=== PATIENT | female | born 1985 | race Caucasian/White ===

== ENCOUNTER 2018-02-09 16:33 | Emergency (ER) | payer OTHER, SELFPAY ==
[2018-02-09 16:35] VITALS: BP 110/75; PULSE 71; RESP 16; TEMP 36.7; O2SAT 100; BMI 20.4
--- NOTE | 2018-02-09 16:45 | CT_ITS ---
STUDY: CT ABDOMEN AND PELVIS WITHOUT CONTRAST REASON FOR EXAM: Female, 33 years old. Left flank pain into groin RADIATION DOSAGE (If Supplied By Facility): CTDIvol = ( 5.06 ) mGy, DLP = ( 199.98 ) mGycm TECHNIQUE: Transaxial images were obtained from the dome of the diaphragm to the symphysis pubis without oral contrast, and without intravenous contrast. Sagittal and coronal images were reconstructed. Individualized dose optimization techniques were used for this CT. COMPARISON: None. FINDINGS: The visualized lung bases are unremarkable. The visualized portions of the heart are within normal limits. Normal liver. Normal gallbladder and extrahepatic biliary system. Normal spleen. Normal pancreas. Normal bilateral adrenal glands. There appears to be mild bilateral pelviectasis without discrete hydronephrosis. There appears to be mild bilateral hydroureter without stones. Normal visualized stomach. Multiple loops of small bowel demonstrating scattered air-fluid levels with fluid filled appearance. No evidence of small bowel obstruction however. Normal colon. There is non-visualization of the appendix. Surgical clip noted near the rectum. There is a right tubal ligation clip. Unsure if this is a fallen tubal ligation clip. There is simple appearing abdominal ascites fluid of unknown origin. Normal abdominal aorta. Normal inferior vena cava. Normal retroperitoneum. Normal urinary bladder. Normal visualized uterus. Normal abdominal wall. Normal osseous structures. CT/Abdomen/Pelvis without Cont IMPRESSION: 1. Abdominal ascites fluid, simple in appearance. Of unknown origin. 2. Scattered mildly gaseous distended loops of small bowel with fluid-filled appearance. No evidence of abnormal obstruction. Nonspecific finding 3. Tubal ligation clips are noted however, the left tubal ligation clip is noted posterior to the rectal region. Unsure if this has become loosened from original location. 4. There appears to mild bilateral dilated renal pelvis with mild bilateral hydroureter. No discrete stones. Prominent distention of the bladder. Unsure if this represents urinary retention Electronically Signed: Coy Atkinson DO at 18:12 EDT Tel , Service support ,
[2018-02-09] MEDS: Ketorolac 30 MG/ML Syringe IV (17:00)
[2018-02-09] MEDS: 0.9% Normal Saline 1,000 ML 125 ML IV (17:00)
[2018-02-09] MEDS: Morphine 4 MG/ML Syringe IV (17:01)
[2018-02-09] MEDS: Ondansetron 4 MG/2 ML Vial IV (17:01)
[2018-02-09 17:24] LABS: Absolute Lymphocyte Count 2.45 X10^3/ul (0.83-4.51); Absolute Neutrophil Count 6.2 X10^3/uL (2.0-7.7); Basophil# 0.03 X10^3/uL; Basophil% 0.3 % (0-1); Eosinophil# 0.17 X10^3/uL; Eosinophils% 1.7 % (0-5); Hematocrit 38.6 % (37-47); Hemoglobin 13.6 g/dl (12.0-15.0); Lymphocyte # 2.45 X10^3/ul (4.0); Mean Corp Hgb Conc 35.2 g/gl (32-36); Mean Corpuscular Hgb 32.5 pg (27.0-32.0); Mean Corpuscular Volume 92.3 fL (81-99); Mean Platelet Vol. 11.1 fl (6.2-12.0); Monocyte# 0.92 X10^3/uL; Monocyte% 9.4 % (0-10); Neutrophil # 6.21 X10^3/uL (2.7-7.7); Neutrophil % 63.4 % (47-70); Platelet Count 188 K/mm3 (150-450); RBC Distribution Width CV 12.8 % (11.6-14.6); RBC Distribution Width SD 42.1 fl (35.1-43.9); Red Blood Count 4.18 M/mm3 (4.2-5.4); White Blood Count 9.8 K/mm3 (4.4-11.0)
[2018-02-09 17:28] LABS: POSITIVE COUNT NO; POSITIVE DIFFERENTIAL NO; POSITIVE MORPHOLOGY NO
[2018-02-09 17:29] LABS: Anion Gap 7 (5-15); BUN 11 mg/dL (7-18); BUN/Creat Ratio 18.8 RATIO (10-20); Chloride 106 mmol/L (98-107); Creatinine, Serum 0.58 mg/dL (0.55-1.02); EST Glomerular Filtration Rate 127 mL/min (>60); Est Glom Filt Rate - Afr Amer 153 mL/min (>60); Estimated Creatinine Clearance 105.08 ml/min; Glucose 83 mg/dL (74-106); Potassium 3.5 mmol/L (3.5-5.1); Sodium Level 137 mmol/L (136-145)
[2018-02-09 17:37] LABS: Pregnancy, Serum, hCG Quali. NEGATIVE Negative (0-9 Nonpreg)
[2018-02-09 18:14] LABS: Bacteria 0 SEEN /hpf (None Seen); Mucous, Urine 0 SEEN /hpf (<or=2+); Red Blood Cells-Urine 0 SEEN /hpf (0-5); White Blood Cells 0 SEEN /hpf (0-5)
--- NOTE | 2018-02-09 18:28 | US_ITS ---
STUDY: ULTRASOUND OF THE FEMALE PELVIS - COMPLETE REASON FOR EXAM: Female, 33 years old. Left lower quadrant pain LMP: 01/24/2018 TECHNIQUE: Transvaginal TECHNICAL QUALITY: Adequate. COMPARISON: None. FINDINGS: The uterus is anteverted and is in a midline position. The uterus measures 7.4 x 5.8 x 3.4 cm. Normal uterine cervix. The endometrium measures 9 mm in thickness, and is . There is no demonstrated endometrial mass. There is no demonstrated myometrial mass. I.U.D. - The patient does not have an I.U.D. The right ovary is visualized. The right ovary measures 2.4 x 2.1 x 1.9 cm. There is no right ovarian cyst or ovarian mass. There is no visualized right adnexal mass or complex lesion. There is normal arterial and normal venous vascularity. The left ovary is visualized. The left ovary measures 4.2 x 3.2 x 2.1 cm. There is no left ovarian cyst or ovarian mass. There is no visualized left adnexal mass or complex lesion. There is normal arterial and normal venous vascularity. There is no fluid in the cul-de-sac. Polycystic ovary disease: No. US/Transvaginal Non- IMPRESSION: Normal female pelvis. Electronically Signed: Coy Atkinson DO at 19:55 EDT Tel , Service support ,
[2018-02-09 19:40] LABS: Color, Urine Straw (Yellow); Glucose, Dipstick Normal (Normal); Ketone-Dipstick 5 mg/dl (Negative); Leukocyte Esterase-Dipstick Negative /ul (Negative); Nitrite-Dipstick Negative (Negative); Occult Blood-Urine Negative /ul (Negative); Protein-Dipstick Negative (Negative); Urine Bilirubin Dipstick Negative (Negative); Urine Clarity Clear (Clear); Urine Urobilinogen Normal (Normal)
[2018-02-09 20:15] LABS: Squamous Epithelial Cells - UA 5-10 SEEN /hpf (5-10)
--- NOTE | 2018-02-09 20:18 | ED.RN ---
PT UP TO THE BATHROOM TO VOID. BLADDER SCANNED PATIENT AND POST RESIDUAL NOTED AT 80 CC. (HAD PUT A HAT IN THE TOILET TO MEASURE URINE) BUT ANOTHER PATIENT HAD DUMPED IT. PATIENT REPORTS SHE VOIDED A SMALL AMOUNT. REPORTS LEFT LOWER PAIN IS 2/10
--- NOTE | 2018-02-09 20:24 | ED.DCSUM_ITS ---
- ER Visit Summary Date of Service: 02/09/18 Chief Complaint: [Left flank pain] History of Present Illness: The patient is a 33 F [presents to the emergency department with complaint of left-sided flank pain that started around 305 today. Patient states that she had gotten up after urinating he felt sudden onset of severe excruciating pain to the left lower quadrant and back. Patient was seen at urgent care and had her urine dipped which was negative and sent to the ER for further workup and evaluation. Patient rates her pain a 10 out of 10 currently. Patient has not had pain like this before. Patient denies any fever or recent illness otherwise. She denies urinary symptoms of dysuria or urgency although she has had some slight frequency.] Physical Examination: [HEENT-PERRLA, EOMI. Cranial nerves II through XII grossly intact. TMs clear. Mucous membranes moist. No adenopathy. Cardiovascular-regular rate and rhythm without murmur or ectopy Lungs-clear to auscultation, chest wall stable without crepitus or subcu emphysema Abdomen-normoactive bowel sounds, soft. Patient has tenderness over left lower quadrant with some guarding. Patient has CVA tenderness on the left. There is no rebound, rigidity, or peritoneal signs. Extremities-intact ?4, normal range of motion, normal pulses, atraumatic] Test Results: [CBC with differential obtained was normal. Chemistries were normal. Urinalysis was normal. HCG was negative. CT scan of the abdomen and pelvis without contrast obtained showed abdominal ascites fluid simple in appearance of unknown origin patient also had scattered mildly distended loops of small bowel with fluid-filled appearance no evidence of abnormal obstruction. Patient had tubal ligation clips left tubal ligation clip is noted posterior to the rectal region and unsure if this is become loosened from original location. There appears to be mild bilateral dilated renal pelvis with mild bilateral hydroureter no discrete stones noted prominent distention of the bladder and right etiology was questioning if this represented urinary retention. Patient also had a pelvic ultrasound that showed normal blood flow to both ovaries and essentially normal ultrasound. I did have the patient void and checked a post void bladder scan which only showed 80 cc of urine. ] Emergency Department Course and Treatment: [Patient initially was medicated with Toradol, morphine, and Zofran and had good pain relief with that. Patient continues to be pain-free at this point.] Treatment Plan: [Patient will be discharged home with a prescription for [place] for severe pain. This point it is unclear the etiology of her pain and it is possible she may have passed a small kidney stone.] Disposition: [Discharged home in stable condition] Impression: [Left flank pain-etiology uncertain-resolved] This note was generated with [email or web address] dictation software. It may contain incorrect words, spelling, and punctuation that were not noted in review of the chart prior to signing ED Disposition - Plan for ED Patient: Chief Complaint: Flank Pain Referrals: Zack Rodriguez MD [Primary Care Provider] -
--- NOTE | 2018-02-09 20:25 | DCINST.ED_ITS ---
ED Disposition - Plan for ED Patient: Chief Complaint: Flank Pain Instructions: ED Flank Pain Uncertain Cause Prescriptions: Hydrocodone Bitart/Apap 5-325 [[place] 5MG-325MG] 1 tab PO Q4H PRN PRN 2 Days #10 tab PRN Reason: Pain Referrals: Zack Rodriguez MD [Primary Care Provider] - 3-5 Days
[2018-02-09 20:29] VITALS: BP 91/52; PULSE 61; RESP 15; O2SAT 100
== END 2018-02-09 20:31 | disposition home or self-care (01) ==
PROVIDERS: Emergency Provider Emergency Medicine; Family Provider Family Medicine; PCP Family Medicine
DX: R10.9 Unspecified abdominal pain (principal); R35.0 Frequency of micturition; Z72.0 Tobacco use; Z98.51 Tubal ligation status; N13.4 Hydroureter
CPT/HCPCS: 74176; 76830; 80048; 81001; 84703; 85025; 93976; 99283; J7030; A4216; J2405

== ENCOUNTER 2018-10-23 17:40 | Emergency (ER) | payer OTHER, SELFPAY ==
[2018-10-23 17:40] VITALS: BP 109/71; PULSE 80; RESP 16; TEMP 36.6; O2SAT 99; BMI 20.4
--- NOTE | 2018-10-23 18:42 | ED.VISSUMM ---
- ER Visit Summary Date of Service: 10/23/18 Chief Complaint: Sore throat History of Present Illness: The patient is a 33 F no dyspnea past medical history prior appendectomy. Patient states she has had a sore throat for 2 weeks since the end of September. That is progressively gotten worse. She is able to swallow. She was seen at the urgent care approximately 7-10 days ago and again yesterday. They started her on prednisone and told her that would make her congestion better. States she had a negative rapid strep. States that she is able to swallow just uncomfortable. Physical Examination: Young female no acute distress. Vital signs are stable afebrile. Pulse ox 99% on room air no signs of hypoxia. No distress. H EENT exam posterior pharynx is erythematous. Tonsils are not enlarged. There is no exudate. There is no peritonsillar abscess. She is able to swallow with discomfort. There is no drooling or stridor. TMs are not erythematous but there is fluid behind both TMs. Neck peritonsillar tenderness. Trachea midline. No lymphadenopathy. No meningismus. Lungs clear to auscultation bilaterally. Heart regular rate and rhythm no murmur. Abdomen soft and nontender. No splenomegaly. No inguinal or axillary lymphadenopathy. Extremities moves all 4. Skin normal. Back nontender. Neurologically she is awake alert. Test Results: None Emergency Department Course and Treatment: Clinically the patient had a progressively worsening sore throat for 2 weeks. She will be started on Zithromax here and placed on a Z-Demetrio over the next 5 days. Treatment Plan: Salt water gargling. Motrin for pain. Zithromax. Disposition: Discharge Impression: Acute pharyngitis This note was generated with [employer] dictation software. It may contain incorrect words, spelling, and punctuation that were not noted in review of the chart prior to signing ED Disposition - Plan for ED Patient: Referrals: Zack Rodriguez MD [Primary Care Provider] -
--- NOTE | 2018-10-23 18:46 | ED.DEP ---
ED Disposition - Plan for ED Patient: Disposition: Home or Assisted Living Instructions: ED Strep Pharyngitis Poss Prescriptions: Azithromycin [Zithromax] 250 mg PO DAILY 4 Days tab Referrals: Zack Rodriguez MD [Primary Care Provider] - 1 Week if not improving Additional Instructions: This may or may not be a bacterial infection in your throat. The rapid strep may be negative but a throat culture may be positive. We will treat her as if it is a bacterial infection. Zithromax 1 pill/day for the next 4 days starting tomorrow. First dose given in the ER. Warm salt water gargling. Chloraseptic spray. Tylenol and Motrin for pain. Follow-up if not improving.
[2018-10-23] MEDS: Azithromycin 250 MG Tablet 500 MG PO (18:52)
== END 2018-10-23 19:02 | disposition home or self-care (01) ==
LOC: ED 19:01
PROVIDERS: Emergency Provider Emergency Medicine; Family Provider Family Medicine; PCP Family Medicine
DX: J02.9 Acute pharyngitis, unspecified (principal); R50.9 Fever, unspecified; Z72.0 Tobacco use
CPT/HCPCS: 99283

== ENCOUNTER → 2019-02-22 09:42 | Outpatient (CLI) | payer OTHER, SELFPAY ==
[2019-02-22 09:39] VITALS: BMI 20.4
--- NOTE | 2019-02-22 09:45 | RAD_ITS ---
STUDY: X-RAY - RIGHT FOOT CLINICAL: Female, 34 years old. Right foot pain, little toe TECHNIQUE: 3 view(s) of the foot. COMPARISON: None. FINDINGS: Normal talus, calcaneus, and tarsal bones. Normal visualized subtalar, talonavicular, calcaneocuboid, tarsal and tarsometatarsal articulations. Normal metatarsi. Normal metatarsophalangeal joint of the great toe. Normal tibial and fibular sesamoid bones. Normal interphalangeal joint of the great toe. Normal phalanges of the great toe. Normal second through fifth metatarsophalangeal joints. Normal interphalangeal joints and phalanges of the lesser toes. The soft tissue structures are unremarkable. RAD/Foot min 3 Views IMPRESSION: Normal x-ray examination of the foot. Electronically Signed: Coy Atkinson DO at 12:02 EDT Tel , Service support ,
== END ==
PROVIDERS: Family Provider Family Medicine; PCP Family Medicine; Referring Provider Physician Assistant Surgical; Visit Provider Physician Assistant Surgical
DX: S90.121A Contusion of right lesser toe(s) without damage to nail, initial encounter (principal)
CPT/HCPCS: 73630

== ENCOUNTER → 2020-02-28 10:59 | Outpatient (CLI) | payer OTHER, SELFPAY ==
[2019-02-22 09:48] VITALS: BMI 20.4
--- NOTE | 2020-02-28 11:30 | MRI_ITS ---
STUDY: MR PELVIS WITH T WITHOUT CONTRAST REASON FOR EXAM: Female, 35 years old. Large RIGHT cystic mass, RIGHT free fluid TECHNIQUE: Standardized fat and water weighted pulse sequences were obtained in all 3 orthogonal planes, pre-and post contrast administration. DOTAREM IV 11CC was administered for the contrast portion of the examination. COMPARISON: CT abdomen 02/09/2018. No recent priors were submitted. FINDINGS: Right deviated uterus with an IUD in position. Normal bilateral ovaries with normal follicles. Trace free pelvic fluid. No bowel obstruction. Normal urinary bladder. There is mild marrow edema and enhancement around the sacroiliac joints, seen in the sacral ala and iliac wings medially. Marrow signal is otherwise normal. Visualized hip joints are unremarkable. MRI/Pelvis W/WO Contrast IMPRESSION: 1. Normal ovarian follicles. No demonstrated cystic lesion. 2. In the appropriate clinical setting, findings suspicious for sacroiliitis. Electronically Signed: Michelle Levin MD at 16:36 EDT Tel , Service support ,
== END ==
PROVIDERS: PCP Internal Medicine; Referring Provider Obstetrics & Gynecology; Visit Provider Obstetrics & Gynecology
DX: N94.89 Other specified conditions associated with female genital organs and menstrual cycle (principal); Z98.51 Tubal ligation status
CPT/HCPCS: 72197; A9575

== ENCOUNTER → 2021-07-26 16:14 | Outpatient (CLI) | payer OTHER, SELFPAY | PROVIDERS: PCP Internal Medicine; Visit Provider Family Medicine | DX: Z23 Encounter for immunization (principal) ==